=== PATIENT | female | born 1985 ===

== ENCOUNTER 2019-12-09 15:00 | Inpatient (IN) | payer OTHER ==
[~2019-12-09] VITALS: Ht 162.6 cm; Wt 84.4 kg
[2019-12-29] MEDS ORDERED: SYNTHROID50 MCG PO (04:43)
== END 2019-12-31 11:07 | DRG 807 ==
LOC: OB/GYN 12-28 15:00 → LDR 12-29 03:53 → OB/GYN 12-29 04:07
PROVIDERS: ADMIT Specialist
PROC: 10E0XZZ Delivery of Products of Conception, External Approach (ICD-10-PCS; principal; 2019-12-29)
PROC: 0KQM0ZZ Repair Perineum Muscle, Open Approach (ICD-10-PCS; 2019-12-29)
PROC: 4A1HXCZ Monitoring of Products of Conception, Cardiac Rate, External Approach (ICD-10-PCS; 2019-12-29)
PROC: 4A033R1 Measurement of Arterial Saturation, Peripheral, Percutaneous Approach (ICD-10-PCS; 2019-12-29)
DX: O70.0 First degree perineal laceration during delivery (principal); Z37.0 Single live birth; Z3A.40 40 weeks gestation of pregnancy

== ENCOUNTER 2024-11-14 15:23 | Inpatient (IN) | payer OTHER ==
[~2024-11-14] VITALS: Ht 162.6 cm; Wt 2.7 kg
[~2024-11-14 15:23] MED LIST: SYNTHROID50 MCG PO
[2024-11-14 15:53] VITALS: BP 124/77
[2024-11-14] MEDS ORDERED: RINGERS SOLUTION,LACTATED 1,000 ML IV SCH (16:00)
[2024-11-14 16:33] LABS: PH,URINE 6.5 (5.0-8.0); URINE APPEARANCE Clear; URINE BILIRRUBIN Negative (NEGATIVE); URINE BLOOD Negative; URINE COLOR Yellow; URINE GLUCOSE Negative (NEGATIVE); URINE KETONE Negative (NEGATIVE); URINE LEUKOCYTE Small; URINE NITRATE Negative; URINE PROTEIN Negative (NEGATIVE); URINE UROBILINOGEN 0.2 E.U./dl
[2024-11-14 16:34] LABS: HEMATOCRIT 34.4 % (36.0-45.00); HEMOGLOBIN 11.3 g/dL (12.0-15.00); MEAN CELL VOLUME 87.2 fL (80.00-100.00); MEAN CORPUSCULAR HEMOGLOBIN 28.8 pg (27.00-32.0); PLATELET COUNT 140 K/uL (150-450); RED BLOOD COUNT 3.94 M/uL (4.00-6.00); URINE BACTERIA 517.4 uL (0.0-1933); URINE EPITHELIAL CELLS 11.8 uL (0.0-38.8); URINE RBC 4.2 uL (0.0-20.8); URINE WBC 36.6 uL (0.0-23.2)
[2024-11-14 16:35] LABS: RED CELL DISTRIBUTION WIDTH 18.2 % (11.5-14.5)
[2024-11-14] MEDS ORDERED: PRENATA CHEWAB1 EACH PO (16:43)
[2024-11-14] MEDS ORDERED: IRON236 MG PO (16:43)
[2024-11-14] MEDS ORDERED: LEVOTHYROXINE25 MCG PO (16:45)
[2024-11-14 16:51] LABS: ALBUMIN 2.3 gm/dL (3.4-5.0); BILIRUBIN TOTAL 0.18 mg/dL (0.3-1.2); CALCIUM 8.6 mg/dL (8.5-10.1); CREATININE SERUM 0.57 mg/dL (0.55-1.02); GFR 118.08; GLOBULINA 3.2 G/DL (2.4-3.5); POTASSIUM 4.01 mEq/L (3.5-5.1); TOTAL PROTEIN 5.5 gm/dL (6.4-8.2)
[2024-11-14 16:59] LABS: INR 0.96; PARTIAL THROMBOPLASTIN TIME 28.5 SECONDS (22.0-34.0); PROTHROMBIN TIME 10.5 SECONDS (9.0-11.5)
[2024-11-14] MEDS ORDERED: BETAMETHASONE ACETATE,SOD PHOS 30 MG/5 ML ML IM SCH (17:00)
[2024-11-14] MEDS ORDERED: CEFAZOLIN SODIUM 1,000 MG VIAL IV SCH ×2 (17:15→18:00)
[2024-11-14] MEDS ORDERED: CEFAZOLIN SODIUM 1,000 MG VIAL ONE (17:21)
[2024-11-14 18:04] LABS: HEMOGLOBIN 11.4 g/dL (12.0-15.00); MEAN CELL VOLUME 87.8 fL (80.00-100.00); MEAN CORPUSCULAR HEMOGLOBIN 28.6 pg (27.00-32.0); MEAN CORPUSCULAR HGB CONC 32.6 g/dl (32.0-36.0); PLATELET COUNT 140 K/uL (150-450); RED BLOOD COUNT 3.99 M/uL (4.00-6.00); RED CELL DISTRIBUTION WIDTH 18.4 % (11.5-14.5)
[2024-11-14 19:00] VITALS: BP 129/70
[2024-11-14 23:16] VITALS: BP 133/78
[2024-11-15] VITALS (7 sets, daily range): BP systolic 121–136; BP diastolic 71–81
[2024-11-15] MEDS ORDERED: LEVOTHYROXINE SODIUM 25 MCG TABLET PO SCH (06:00)
[2024-11-15] MEDS ORDERED: FAMOTIDINE/PF 20 MG/2 ML VIAL IV ONE (09:15)
[2024-11-15] MEDS ORDERED: FAMOTIDINE/PF 20 MG/2 ML VIAL ONE (09:45)
[2024-11-15 17:14] LABS: CREATININE URINE 51.4 MG/DL; URINE PROT QUANT 24HR 17.6 MG/DL
[2024-11-15 17:18] LABS: URINE PROT QUANT 24 HR 457.6 MG/24HR (42-225)
[2024-11-15 17:19] LABS: CREATINE CLEARANCE 108.1 ML/MIN (97-137); CREATININE SERUM 0.86 mg/dL (0.6-1.0)
[2024-11-15] MEDS ORDERED: PANTOPRAZOLE SODIUM 40 MG/VIAL VIAL IV SCH (18:09)
[2024-11-15] MEDS ORDERED: CITRIC ACID/SODIUM CITRATE 30 ML BLIST.PACK PO ONE ×2 (18:15→18:34)
[2024-11-15] MEDS ORDERED: PANTOPRAZOLE SODIUM 40 MG/VIAL VIAL ONE (18:34)
[2024-11-15 18:46] LABS: HEMATOCRIT 34.5 % (36.0-45.00); HEMOGLOBIN 11.3 g/dL (12.0-15.00); MEAN CELL VOLUME 87.3 fL (80.00-100.00); MEAN CORPUSCULAR HEMOGLOBIN 28.5 pg (27.00-32.0); MEAN CORPUSCULAR HGB CONC 32.7 g/dl (32.0-36.0); PLATELET COUNT 144 K/uL (150-450); RED BLOOD COUNT 3.95 M/uL (4.00-6.00); RED CELL DISTRIBUTION WIDTH 18.1 % (11.5-14.5)
[2024-11-15 19:28] LABS: ALBUMIN 2.3 gm/dL (3.4-5.0); BILIRUBIN TOTAL 0.2 mg/dL (0.3-1.2); CALCIUM 8.9 mg/dL (8.5-10.1); CREATININE SERUM 0.9 mg/dL (0.55-1.02); GFR 69.7; GLOBULINA 3.4 G/DL (2.4-3.5); POTASSIUM 4.05 mEq/L (3.5-5.1); TOTAL PROTEIN 5.7 gm/dL (6.4-8.2)
[2024-11-15 19:59] LABS: INR 0.94; PARTIAL THROMBOPLASTIN TIME 26.5 SECONDS (22.0-34.0); PROTHROMBIN TIME 10.3 SECONDS (9.0-11.5)
[2024-11-15] MEDS ORDERED: MORPHINE SULFATE 4 MG/ML CARTRIDGE IV ONE (20:15)
[2024-11-16] VITALS (11 sets, daily range): BP systolic 115–176; BP diastolic 60–81
[2024-11-16] MEDS ORDERED: CITRIC ACID/SODIUM CITRATE 30 ML BLIST.PACK PO ONE (08:00)
[2024-11-16] MEDS ORDERED: TERBUTALINE SULFATE 1 MG/ML AMPUL ONE (08:30)
[2024-11-16] MEDS ORDERED: CHLORHEXIDINE GLUCONATE 120 ML BOTTLE TOP ONE (09:07)
[2024-11-16] MEDS ORDERED: ERYTHROMYCIN BASE OPHT 1GM EACH TUBE OP ONE ×3 (09:07→09:24)
[2024-11-16] MEDS ORDERED: OXYTOCIN 20 UNITS/1000ML RL PIGGYBAG IV ONE (09:07)
[2024-11-16] MEDS ORDERED: LIDOCAINE HCL 1% 10ML VIAL ONE (09:07)
[2024-11-16] MEDS ORDERED: OXYTOCIN 10 UNITS/ML VIAL ONE (09:23)
[2024-11-16] MEDS ORDERED: OXYTOCIN 20 UNITS/500ML RL PIGGYBAG IV ONE (09:30)
[2024-11-16] MEDS ORDERED: IBUprofen 600 MG TABLET PO SCH (12:00)
[2024-11-17] VITALS: BP 128/74
[2024-11-17 08:00] VITALS: BP 129/74
[2024-11-17 16:10] VITALS: BP 138/77
[2024-11-17] MEDS ORDERED: PANTOPRAZOLE SODIUM 40 MG TABLET.DR PO SCH (17:00)
[2024-11-17 21:47] VITALS: BP 139/81
[2024-11-18 00:35] VITALS: BP 132/75
== END 2024-11-18 12:53 | disposition home or self-care (01) | DRG 805 ==
LOC: OBS/DEL 15:23 → OB/GYN 11-15 18:11 → LDR 11-15 18:11 → OBS/DEL 11-15 18:11 → OB/GYN 11-15 19:04
PROVIDERS: ADMIT Specialist; ATTEND Specialist
PROC: 4A1HXCZ Monitoring of Products of Conception, Cardiac Rate, External Approach (ICD-10-PCS; 2024-11-15)
PROC: 10E0XZZ Delivery of Products of Conception, External Approach (ICD-10-PCS; principal; 2024-11-16)
DX: O69.81X1 Labor and delivery complicated by cord around neck, without compression, fetus 1 (principal); O60.14X2 Preterm labor third trimester with preterm delivery third trimester, fetus 2; O30.033 Twin pregnancy, monochorionic/diamniotic, third trimester; Z37.2 Twins, both liveborn; Z3A.36 36 weeks gestation of pregnancy